=== PATIENT | male | born 1980 | race Caucasian/White ===

== ENCOUNTER 2025-03-12 03:46 | Emergency (ER) | payer MEDICAID ==
[~2025-03-12] VITALS: Ht 175.3 cm; Wt 95.3 kg
[2025-03-12 03:50] VITALS: PULSE 99; RESP 17; TEMP 98.1; O2SAT 100
== END 2025-03-12 04:22 | disposition home or self-care (01) ==
LOC: ER 03:58
DX: R60.9 Edema, unspecified (principal); M79.89 Other specified soft tissue disorders; F17.210 Nicotine dependence, cigarettes, uncomplicated
CPT/HCPCS: 99282